=== PATIENT | male | born 1960 | race African-American/Black ===

== ENCOUNTER 2017-12-16 13:02 | Outpatient (CLI) | payer MEDICARE, OTHER ==
[2017-12-16 14:05] LABS: #Eosinphils 0.3 thou/uL (0.0-0.7); #Lymphocytes 1.5 thou/uL (1.20-3.40); #Monocytes 0.8 thou/uL (0.11-0.59); #Neutrophils 4.9 thou/uL (1.40-6.50); %Basophils 0.4 % (0.0-1.0); %Eosinophils 4.1 % (0.0-10.0); %Lymphocytes 20.3 % (21.0-51.0); %Monocytes 10.3 % (0.0-10.0); %Neutrophils 64.9 % (42.0-75.0); Hemoglobin 15.1 g/dL (14.0-18.0); Mean Corpuscular Hemoglobin 32.7 pg (27.0-31.0); Mean Corpuscular Volume 99.1 fl (80.0-94.0); Mean Platelet Volume 6.6 fL (7.4-10.4); Platelet Count 262 thou/uL (130-400); RBC Distribution Width 12.5 % (11.5-14.5); Red Blood Cell (RBC) Count 4.63 mill/uL (4.70-6.10); White Blood Cell (WBC) Count 7.5 thou/uL (4.8-10.8)
[2017-12-16 14:29] LABS: Anion Gap 13 mmol/L (10-20); BUN (Urea Nitrogen) 14 mg/dL (8.4-25.7); Calc. Creatinine Clearance 0 mL/min (70-130); Calcium 9.5 mg/dL (7.8-10.44); Carbon Dioxide 26 mmol/L (22-29); Chloride 101 mmol/L (98-107); Estimated GFR-MDRD 78; Glucose 103 mg/dL (70-105); Potassium 3.4 mmol/L (3.5-5.1); Sodium 137 mmol/L (136-145)
== END 2017-12-16 13:03 | disposition home or self-care (01) ==
LOC: LABBT 13:02
PROVIDERS: ATTEND Neurological Surgery
DX: Z01.818 Encounter for other preprocedural examination (principal); M48.061 Spinal stenosis, lumbar region without neurogenic claudication
CPT/HCPCS: 80048; 85025; 93005; 93010

== ENCOUNTER 2018-06-20 11:01 | Outpatient (CLI) | payer OTHER, MEDICARE ==
--- NOTE | 2018-06-20 14:51 | MRI ---
CERVICAL SPINE MRI WITHOUT CONTRAST: DATE: 06/20/2018. COMPARISON: 12/03/2015. HISTORY: Cervical herniated disk, myelopathy, bilateral upper extremity radiculopathy, right greater than left . TECHNIQUE: Multiplanar, multisequence MR imaging of the cervical spine is provided without contrast. FINDINGS: The sagittal STIR imaging demonstrates no focal area of osseous marrow edema. C2-3: No significant central canal or neural foraminal stenosis. C3-4: There is a central disk herniation which effaces the ventral aspect of the thecal sac and abut s the ventral aspect of the cord. There is associated cord flattening with moderate/severe central c anal stenosis. When compared to the 12/03/2015 examination, the degree of central canal stenosis and cord flattening has mildly worsened. Moderate bilateral stable neural foraminal stenosis. C4-5: Disk space narrowing and disk bulge present with mild central canal stenosis. There is mild b ilateral facet hypertrophy with mild/moderate bilateral neural foraminal stenosis. C5-6: Disk space narrowing, disk desiccation, and disk bulge present. Bilateral facet hypertrophy. Mild central canal stenosis. Mild right and moderate left neural foraminal stenosis. C6-7: There is disk space narrowing, disk desiccation, and mild disk bulge. There is bilateral face t and uncovertebral osteophyte formation with moderate bilateral neural foraminal stenosis. No signi ficant central canal stenosis. C7-T1: Disk desiccation and disk bulge present. Mild central canal stenosis. Bilateral facet hyper trophy. Moderate bilateral neural foraminal stenosis, left greater than right. There is a focal area of increased signal intensity within the cervical cord at C6-7, stable, evidenc e of prior stable myelomalacia. There is evidence of prior bilateral laminectomy at C3, C4, C5, and C6 levels. IMPRESSION: Multilevel postoperative and degenerative change within the cervical spine as above. POS: [facility]
--- NOTE | 2018-06-20 14:54 | MRI ---
MRI THORACIC SPINE WITHOUT COTNRAST: COMPARISON: None. HISTORY: Mid to low back pain extends down bilateral arms, hands, and legs for 7-8 years. TECHNIQUE: Multiplanar, multisequence MR images were obtained of the thoracic spine without contrast. FINDINGS: The vertebral bodies and intervertebral disks demonstrate normal height and alignment without fractur e or subluxation. Intermittent intervertebral disk desiccation is seen throughout the thoracic spine . The visualized cord demonstrates normal signal throughout. The prevertebral and paraspinal soft tiss ues are unremarkable. No significant posterior bulge or protrusion seen throughout the thoracic spine. Mild bilateral post erior facet arthrosis is seen in the lower lumbosacral spine. There is mild narrowing of the right n eural foramina at T9-10, T10-11, and T11-12 and left neural foraminal narrowing at T10-11 and T11-12. The other neural foramen are widely patent. IMPRESSION: Mild degenerative changes of the thoracic spine with neural foraminal stenosis of the lower lumbosacr al spine as above. POS: [facility]
== END 2018-06-20 11:02 | disposition home or self-care (01) ==
LOC: BICMRI 11:01
PROVIDERS: ATTEND Neurological Surgery
DX: M54.6 Pain in thoracic spine (principal); M50.00 Cervical disc disorder with myelopathy, unspecified cervical region; M47.814 Spondylosis without myelopathy or radiculopathy, thoracic region; M99.83 Other biomechanical lesions of lumbar region; M47.812 Spondylosis without myelopathy or radiculopathy, cervical region; Z98.890 Other specified postprocedural states
CPT/HCPCS: 72141; 72146

== ENCOUNTER 2018-09-04 08:24 | Outpatient (CLI) | payer OTHER, MEDICARE ==
--- NOTE | 2018-09-04 10:24 | CT ---
CT CERVICAL SPINE NONCONTRAST: Date: 09/04/18 HISTORY: Neck pain with bilateral arm radiculopathy. Prior surgery. FINDINGS: An aberrant right subclavian artery is partially visualized on the inferiormost images. Vertebral body heights are maintained. No acute fracture or dislocation. C2-3: Osteophytosis. Central canal and neural foramina are patent. C3-4: Laminae surgically absent. Posterior osteophyte/disc complex with effacement of the thecal sac . Osteophytosis with moderate bilateral foraminal stenosis. C4-5: Disc space narrowing. Laminae surgically absent. Osteophytosis with effacement of the ventral aspect of the thecal sac. Moderate to severe bilateral foraminal stenoses. C5-6: Disc space narrowing. Laminae surgically absent. Osteophyte/disc complex with effacement of th e ventral aspect of the thecal sac and residual central canal stenosis. Moderate right and severe lef t foraminal stenoses. C6-7: Disc space narrowing. Minimal degenerative retrolisthesis. Posterior osteophyte/disc complex e ffacing the ventral aspect of the thecal sac. Severe central canal stenosis. Moderate bilateral mariana inal stenoses. C7-T1: Osteophyte/disc complex with posterior disc protrusion. Severe central canal stenosis suspect ed due to prominent disc protrusion. Osteophytosis with severe right and moderate to severe left fora claudia stenoses. IMPRESSION: Postoperative and prominent multilevel degenerative changes throughout the cervical spine as detailed above. Posterior disc protrusion suspected at the C7-T1 level, compressing the thecal sac, with byron re central canal stenosis. POS: [facility]
== END 2018-09-04 08:25 | disposition home or self-care (01) ==
LOC: BICCT 08:24
PROVIDERS: ATTEND Neurological Surgery
DX: M47.12 Other spondylosis with myelopathy, cervical region (principal); M47.22 Other spondylosis with radiculopathy, cervical region; M48.02 Spinal stenosis, cervical region
CPT/HCPCS: 72125

== ENCOUNTER 2018-11-27 00:12 | Outpatient (CLI) | payer OTHER, MEDICARE ==
[2018-11-27 10:02] LABS: Mean Corpuscular HGB CONC 32.1 g/dL (32.0-36.0); Mean Corpuscular Hemoglobin 31.8 pg (27.0-31.0); Mean Corpuscular Volume 99.3 fL (78.0-98.0); Mean Platelet Volume 6.6 fL (7.4-10.4); Platelet Count 260 thou/uL (130-400); RBC Distribution Width 12.6 % (11.5-14.5); Red Blood Cell (RBC) Count 4.39 mill/uL (4.70-6.10); White Blood Cell (WBC) Count 6.7 thou/uL (4.8-10.8)
[2018-11-27 10:20] LABS: Anion Gap 12 mmol/L (10-20); BUN (Urea Nitrogen) 9 mg/dL (8.4-25.7); Calc. Creatinine Clearance 0 mL/min (70-130); Calcium 9.3 mg/dL (7.8-10.44); Carbon Dioxide 25 mmol/L (22-29); Chloride 104 mmol/L (98-107); Estimated GFR-MDRD 78; Glucose 118 mg/dL (70-105); Potassium 3.8 mmol/L (3.5-5.1); Sodium 137 mmol/L (136-145)
--- NOTE | 2018-11-28 22:26 | EKG ---
Test Reason : Blood Pressure : / mmHG Vent. Rate : 070 BPM Atrial Rate : 070 BPM P-R Int : 158 ms QRS Dur : 080 ms QT Int : 394 ms P-R-T Axes : 066 013 047 degrees QTc Int : 425 ms Normal sinus rhythm Cannot rule out Anterior infarct , age undetermined Abnormal ECG When compared with ECG of 16-DEC-2017 13:49, No significant change was found Confirmed by Abraham JAFFE ([id number]) on 11/28/2018 10:26:18 PM Referred By: YINKA Confirmed By:Abraham JAFFE
== END 2018-11-27 00:13 | disposition home or self-care (01) ==
LOC: LABBT 00:12
PROVIDERS: ATTEND Neurological Surgery
DX: Z01.818 Encounter for other preprocedural examination (principal); M47.12 Other spondylosis with myelopathy, cervical region
CPT/HCPCS: 80048; 85027; 93005; 93010

== ENCOUNTER 2018-11-30 05:47 | Day surgery (SDC) | payer OTHER, MEDICARE ==
[2018-11-27 08:57] VITALS: BMI 33.5
[2018-11-30] MEDS ORDERED: Sodium Chloride 0.9% 10 ML ONE (06:34)
[2018-11-30] MEDS ORDERED: Fentanyl 100 MCG/2 ML VIAL ONE ×2 (06:49→09:12)
--- NOTE | 2018-11-30 10:22 | OP ---
DATE OF PROCEDURE: 11/30/2018 MANAGER FINANCE: Zaire Chung PA-C PROCEDURES PERFORMED: Anterior cervical diskectomy C6-C7, interbody arthrodesis, intervertebral biomechanical device, local morselized autograft, demineralized bone matrix, anterior titanium instrumentation, C6-C7. DESCRIPTION OF PROCEDURE: The patient was brought to the operating room and intubated. He was positioned supine with the head in modest extension on a gel-filled donut. An incision was made in the right precervical area and dissected medial to the sternocleidomastoid muscle, identified the anterior cervical spinal, and the level was confirmed by x-ray. We debrided the anterior osteophytes, placed distraction across the disk spaces, and using operative microscope and microdissection techniques, completely decompressed the C6-C7 disk at the level of spinal cord. The bony endplates were then decorticated for the purpose of arthrodesis and appropriate-sized intervertebral biomechanical PEEK device was brought into the field and filled with demineralized bone matrix and local morselized autograft, and tapped in place securely at C6-C7. Next, an anterior plate was brought into the field and secured to C6 and C7 using two 14-mm screws at each level. The wound was then extensively irrigated and maximum hemostasis was secured. The wound was closed in anatomic layers. Job ID: [id number]
[2018-11-30] MEDS ORDERED: Glycopyrrolate 0.2 MG/ML 5 ML SYRINGE ONE (15:34)
[2018-11-30] MEDS ORDERED: Rocuronium Bromide 10 MG/ML (10ML VIAL) ONE (15:34)
[2018-11-30] MEDS ORDERED: PHENYLEPHRINE-NS 100 MCG/ML 10 ML SYRINGE ONE (15:34)
[2018-11-30] MEDS ORDERED: Ondansetron PF 4 MG/2 ML Vial ONE (15:34)
[2018-11-30] MEDS ORDERED: Dexamethasone 20 MG/5 ML VIAL ONE (15:34)
[2018-11-30] MEDS ORDERED: Esmolol 100 MG/10 ML VIAL ONE (15:34)
[2018-11-30] MEDS ORDERED: Ketorolac Tromethamine 30 MG/ML VIAL ONE (15:34)
[2018-11-30] MEDS ORDERED: Lidocaine 1% PF 5 ML VIAL ONE (15:34)
[2018-11-30] MEDS ORDERED: PROPOFOL 200 MG/20 ML VIAL ONE (15:34)
== END 2018-11-30 12:44 | disposition home or self-care (01) ==
LOC: SDC 05:47
PROVIDERS: ATTEND Neurological Surgery
PROC: 0RT30ZZ Resection of Cervical Vertebral Disc, Open Approach (ICD-10-PCS; principal; 2018-11-30)
PROC: 0RG10A0 Fusion of Cervical Vertebral Joint with Interbody Fusion Device, Anterior Approach, Anterior Column, Open Approach (ICD-10-PCS; principal; 2018-11-30)
DX: M48.02 Spinal stenosis, cervical region (principal); M47.12 Other spondylosis with myelopathy, cervical region; I10 Essential (primary) hypertension; E78.5 Hyperlipidemia, unspecified; N40.0 Benign prostatic hyperplasia without lower urinary tract symptoms; Z87.891 Personal history of nicotine dependence; Z79.1 Long term (current) use of non-steroidal anti-inflammatories (NSAID); Z79.82 Long term (current) use of aspirin; Z79.84 Long term (current) use of oral hypoglycemic drugs; Z79.899 Other long term (current) drug therapy
CPT/HCPCS: 76000; C1713; C1776; J0131; J0690; J1100; J1885; J2001; J2405; J2704; J3010; J3490

== ENCOUNTER 2018-12-14 15:04 | Outpatient (CLI) | payer OTHER, MEDICARE ==
--- NOTE | 2018-12-14 15:46 | RAD ---
Exam: 3 views cervical spine HISTORY: Cervical fusion. COMPARISON: None FINDINGS: Limited evaluation of the odontoid process on the open-mouth projection. Lateral masses of C1 and C2 articulate appropriately. On the AP projection, no malalignment. There is no prevertebral soft tissue swelling of the predental space is normal. There is an anterior fusion plate with transvertebral body screw at C6-C7. Disc prosthesis at C6-C7. Moderate to severe degenerative change with loss of disc space height and osteophyte formation at C5-C6. Moderate degene rative change at C4-C5. Vertebral body height is maintained. No fracture. Limited evaluation of the cervicothoracic junction. IMPRESSION: 1. Uncomplicated cervical fusion at C6-C7. 2. Degenerative changes of the cervical spine as above.
== END 2018-12-14 15:05 | disposition home or self-care (01) ==
LOC: TBSIIMAG 15:04
PROVIDERS: ATTEND Neurological Surgery
DX: M47.22 Other spondylosis with radiculopathy, cervical region (principal); M47.12 Other spondylosis with myelopathy, cervical region; Z98.1 Arthrodesis status
CPT/HCPCS: 72040

== ENCOUNTER 2019-01-23 15:46 | Outpatient (CLI) | payer OTHER, MEDICARE ==
--- NOTE | 2019-01-23 16:21 | RAD ---
4 views cervical spine. HISTORY: Neck surgery. AP, lateral, swimmer's and open-mouth odontoid views cervical spine is obtained. Comparison made to previous exam from 12/14/2018. There is fusion of the C6-7 level. This is unchanged since the previous exam. Disc space height loss with anterior and posterior osteophytes compatible with changes of spondylosis seen at C3-4, C4-5 and C5-6. The patient is been extensive posterior laminectomy changes involving C3, C4, C5, C6, C7 levels. IMPRESSION: Stable cervical spine series.
== END 2019-01-23 15:47 | disposition home or self-care (01) ==
LOC: TBSIIMAG 15:46
PROVIDERS: ATTEND Neurological Surgery
DX: M48.02 Spinal stenosis, cervical region (principal)
CPT/HCPCS: 72040

== ENCOUNTER 2019-06-21 15:40 | Outpatient (CLI) | payer OTHER, MEDICARE ==
--- NOTE | 2019-06-21 16:07 | RAD ---
XR Cerv Sp Ap Lat STANDARD History: M 55.12 cervical spondylosis Comparison: Radiograph January 23, 2019 Findings: Mild narrowing at the C1-2 articulation on the open-mouth odontoid view. Similar appearance ACDF hardware at C6-7 without migration of the discectomy cage. Lung apices appear clear. Advanced degenerative disc space height loss at C4/C5 and C5/C6 with circumferential disc osteophyte complexes. 2 mm C2 over C3 as well as 1 to 2 mm C3 over C4 retrolisthesis. Laminectomy changes from C3-C7. Impression: Similar examination of the cervical spine. Satisfactory postoperative appearance.
== END 2019-06-21 15:41 | disposition home or self-care (01) ==
LOC: TBSIIMAG 15:40
PROVIDERS: ATTEND Neurological Surgery
DX: M47.12 Other spondylosis with myelopathy, cervical region (principal); Z98.890 Other specified postprocedural states
CPT/HCPCS: 72040

== ENCOUNTER 2020-04-24 12:34 | Outpatient (CLI) | payer OTHER, MEDICARE ==
--- NOTE | 2020-04-24 13:50 | MRI ---
MRI cervical spine noncontrast: 04/24/2020 HISTORY: 59-year-old male with cervical spondylosis with myelopathy M 47.12 COMPARISON: MRI 06/20/2018 FINDINGS: Again noted are the laminectomy defects from C3-4 through C7-T1. There is ACDF hardware at C6 and C7, new since the 06/20/2018 MRI, and also new since the 09/04/2018 C T. High-grade degenerative disc disease with disc space narrowing at C4-5, C5-6, C6-7. Lesser degree of degenerative disc disease at C3-4 and C7-T1. Spinal canal is diffusely small in caliber on a congenital basis due to developmentally short pedicles. This is exacerbated by hypertrophic degenerat snehal changes at various levels. C1-2: No high-grade central stenosis. C2-3: Ligamentum flavum thickening. Moderate central spinal canal stenosis. No high-grade neural fora claudia stenosis. C3-4: Moderate size central focal disc-osteophyte complex indents ventral aspect of spinal cord. Mode rate to severe central spinal canal stenosis. Moderate size bilateral uncinate process osteophytes. Severe bilateral neural foraminal stenosis. C4-5: Large bilateral uncinate process osteophytes. Severe bilateral neural foraminal stenosis, right worse than left. Central focal disc-osteophyte complex abuts and minimally indents ventral surface of spinal cord. Subtle finding of small central focus of T2 prolongation in the spinal cord at this l evel consistent with myelomalacia. Image quality better on the current study compared to previous. It was probably present previously. Moderate central spinal canal stenosis. C5-6: Moderate to large bilateral uncinate process osteophytes. Moderate right and severe left neural foraminal stenosis. Focal central disc-osteophyte complex indents the ventral surface of spinal cord. Moderate to severe central spinal canal stenosis. Moderate to severe right neural foraminal martín nosis. Severe left neural foraminal stenosis. C6-7: Focal cord atrophy with T2 prolongation lesions involving majority of cross-sectional area of t he spinal cord. Large bilateral uncinate process osteophytes. Severe bilateral neural foraminal stenosis. The cord atrophy accommodates the mild disc-osteophyte complex centrally, such that the deg ree of central spinal canal stenosis is mild-moderate. C7-T1: Large bilateral uncinate process osteophytes causing severe bilateral neural foraminal stenosi s. Broad-based disc-osteophyte complex. Moderate to severe central spinal canal stenosis. IMPRESSION: 1.) High-grade cervical spondylosis with multilevel degenerative disc disease exacerbating a developm entally small caliber spinal canal. 2) multilevel high-grade central spinal canal stenosis and high-grade neural foraminal stenosis have not significantly changed. 3) focal severe myelomalacia at C6-C7, and very small focal myelomalacia at C4-5. 4) old laminectomies from C3-4 through C7-T1. 5) the only interval change is new anterior cervical discectomy and fusion at C6-7.
--- NOTE | 2020-04-24 15:23 | MRI ---
MRI thoracic spine noncontrast: 04/24/2020 HISTORY: 59-year-old male with "M 54.6 thoracic spine pain" COMPARISON: 05/24/2018 FINDINGS: Partial visualization of ACDF hardware at C6 and C7. All images are degraded by patient motion, making it difficult to evaluate for intramedullary signal abnormality of the thoracic spinal cord. The thoracic spinal cord appears to be within normal limits in size. There is no high-grade bony central spinal canal stenosis at any level. There is prom inent posterior and right lateral posterior lateral epidural fat pad throughout the midthoracic spine, resulting in narrowing of the thecal sac. No extrinsic cord compression or impingement identif ied. No obvious large syrinx. Vertebral body heights are maintained. No severe disc space narrowing at any level. At T1-2 and T2-3, there are shallow broad-based disc protrusions or disc-osteophyte com plexes encroaching upon anterior aspect of spinal canal. No major bone marrow signal abnormality identified. There is bilateral neural foraminal stenosis at T11-12, better demonstrated on the previo us MRI. No interval change is detected. IMPRESSION: 1. Mild discogenic degenerative changes in upper thoracic spine. 2. Bilateral neural foraminal stenosis at lower thoracic spine. 3. No major pathology identified.
== END 2020-04-24 12:35 | disposition home or self-care (01) ==
LOC: TBSIIMAG 12:34
PROVIDERS: ATTEND Neurological Surgery
DX: M47.12 Other spondylosis with myelopathy, cervical region (principal); M51.34 Other intervertebral disc degeneration, thoracic region; M48.04 Spinal stenosis, thoracic region; M48.02 Spinal stenosis, cervical region; G95.89 Other specified diseases of spinal cord; Z98.890 Other specified postprocedural states; Z98.1 Arthrodesis status; M50.00 Cervical disc disorder with myelopathy, unspecified cervical region
CPT/HCPCS: 72141; 72146

== ENCOUNTER 2021-05-07 08:34 | Outpatient (CLI) | payer OTHER, MEDICARE | END 2021-05-07 08:35 | disposition home or self-care (01) | LOC: TBSIIMAG 08:34 | PROVIDERS: ATTEND Neurological Surgery | DX: M51.16 Intervertebral disc disorders with radiculopathy, lumbar region (principal); M47.12 Other spondylosis with myelopathy, cervical region; M47.26 Other spondylosis with radiculopathy, lumbar region; Z98.1 Arthrodesis status | CPT/HCPCS: 72040; 72100 ==

== ENCOUNTER 2022-10-21 12:35 | Outpatient (CLI) | payer BC, MEDICARE | END 2022-10-21 12:36 | disposition home or self-care (01) | LOC: MRI 12:35 | PROVIDERS: ATTEND Family Medicine | DX: G95.20 Unspecified cord compression (principal); G95.9 Disease of spinal cord, unspecified; M47.812 Spondylosis without myelopathy or radiculopathy, cervical region; M50.30 Other cervical disc degeneration, unspecified cervical region; M48.02 Spinal stenosis, cervical region; Z98.1 Arthrodesis status | CPT/HCPCS: 72141 ==